=== PATIENT | male | born 1980 | race Caucasian/White ===

== ENCOUNTER 2023-11-17 09:23 | Day surgery (SDC) | payer OTHER, SELFPAY ==
[2023-11-17 09:40] VITALS: BP 135/82; PULSE 77; RESP 16; TEMP 36.1; O2SAT 99; BMI 24.9
--- NOTE | 2023-11-17 09:54 | PCM.PRE.AN2 ---
ASA Classification* ASA Classification ASA Classification: 2 Assessment & Plan Anesthesia* Anesthesia Assessment Anesthesia Assessment: Discussed sedation and/or anesthesia options, risks, benefits, and alternatives with patient/parents/legal guardian/POA. Questions invited. The patient/parents/legal guardian/POA seems to understand and agrees to proceed with anesthesia plan. Reviewed the physical assessment, medical history, allergy history and patient home medications list prior to surgery/procedure/anesthetic and documented any changes. Performed airway and anesthesia risk assessments. 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 When Was Last Pacemaker Check QUESTION #4 FULL TEXT: You/Your Family Experience fever (hyperthermia) with Anesthesia Last Oral Intake Last Oral intake: Last Oral Intake NPO since 00:00 11/17/23 09:40 Meds taken in AM with sips of No 11/17/23 09:40 water? 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 Female No 11/13/23 12:46 HX of Motion Sickness No 11/13/23 12:46 HX of N/V After Surgery No 11/13/23 12:46 Non-Smoker Yes 11/13/23 12:46 Duration of Surgery greater No 11/13/23 12:46 than 60 minutes Number of Risk Factors 1 11/13/23 12:46 PONV Score Low Risk 11/13/23 12:46 Height & Weight Height & Weight: Anesthesia: Height & Weight Height 6 ft 11/17/23 09:40 Weight: 83.3 kg 11/17/23 09:40 Body Mass Index (BMI) 24.9 11/17/23 09:40 Respiratory Assessment Respiratory Assessment - stationary boiler 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 Has anyone observed you stop No 11/13/23 12:46 breathing during sleep? STOP Results Negative 11/13/23 12:46 QUESTION #5 FULL TEXT : Do you snore loudly (louder than talking or can be heard through closed doors)? 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 Specify any problems Hx of Preganancy in last 3 N/A 11/13/23 12:46 Months Nurse Filling Out Transfusion VCHRISTIN 11/13/23 12:46 & Questions: Date: 11/13/23 11/13/23 12:46 Time: 12:47 11/13/23 12:46 Patient unable to answer at this time (ie. 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: /Reproductive Hx- stationary boiler fireman Hx Now Gestational Age (in weeks): EDC: Hx Hx Para Hx Section SAB PFSH Medical History Wears glasses Alcohol use Non-smoker Home Medications ?Medication ?Instructions ?Recorded ?Last Taken ?Type hydrocortisone 2.5 % topical cream 1 applic [place] BID-QID PRN 11/10/23 Unknown Rx with perineal applicator hemorrhoids 6 weeks #30 grams (Anusol-HC) ibuprofen 200 mg tablet 200 mg PO Q6H PRN pain 11/10/23 Unknown History Allergy/AdvReac Type Severity Reaction Status Date / Time No Known Allergies Allergy Verified 11/13/23 12:42 Social History Smoking Status: Never smoker alcohol intake: current substance use type: does not use Review of Systems (Anesthesia) ROS Narrative System reviewed and no additional complaints, except as documented.
[2023-11-17 09:55] VITALS: BP 135/82; PULSE 77; RESP 16; TEMP 36.1; O2SAT 99
--- NOTE | 2023-11-17 10:12 | HP.PCM_ITS ---
HPI - General General Date of Admission: 11/17/23 Date of Service: 11/17/23 Chief Complaint: Blood per rectum/colonoscopy HPI Narrative ANNABELLA SMITH, is a 43 M who presents for colonoscopy today. Patient was seen in the office recently and had some complaints of blood per rectum. I offered him a colonoscopy. We discussed the details of the planned procedure and he wished to proceed. Patient presents today to have this performed. [facility] Medical History Wears glasses Alcohol use Non-smoker Home Medications ?Medication ?Instructions ?Recorded ?Last Taken ?Type hydrocortisone 2.5 % topical cream 1 applic [place] BID-QID PRN 11/10/23 Unknown Rx with perineal applicator hemorrhoids 6 weeks #30 grams (Anusol-HC) ibuprofen 200 mg tablet 200 mg PO Q6H PRN pain 11/10/23 Unknown History Allergy/AdvReac Type Severity Reaction Status Date / Time No Known Allergies Allergy Verified 11/13/23 12:42 Social History Smoking Status: Never smoker alcohol intake: current substance use type: does not use ROS Constitutional Constitutional: Reports systems reviewed and no addt'l complaints, except as documented Eyes Eyes: Reports systems reviewed and no addt'l complaints, except as documented ENT HEENT: Reports systems reviewed and no addt'l complaints, except as documented Cardiovascular Cardiovascular: Reports systems reviewed and no addt'l complaints, except as documented Respiratory/Chest Respiratory/Chest: Reports systems reviewed and no addt'l complaints, except as documented Gastrointestinal Gastrointestinal: Reports systems reviewed and no addt'l complaints, except as documented Vital Signs Vital Signs Vital Signs: 11/17/23 09:40 11/17/23 09:40 11/17/23 09:55 Temperature 97.0 F L 97.0 F L Temperature Source Temporal Pulse Rate 77 77 Respiratory Rate 16 16 Respiratory Pattern Normal Blood Pressure 135/82 H 135/82 H Blood Pressure Mean 99 Blood Pressure Source Monitor Blood Pressure Position Sitting Blood Pressure Location Left Arm Pulse Ox 99 99 Oxygen Delivery Method Room Air Weight Weight: 183 lb 10.321 oz Body Mass Index (BMI) 24.9 Physical Exam Const alert, oriented x3 and no apparent distress General Appearance: cooperative and well kempt HEENT normocephalic Head and Scalp: normocephalic and atraumatic Eyes PERRL Chest palpation of chest normal Resp Effort and Inspection: symmetric chest movement GI soft to palpation and non-tender Assessment & Plan Assessment/Plan (1) Blood in stool: PLAN: Plan Colonoscopy today
--- NOTE | 2023-11-17 10:30 | COLBX_PTH ---
PATIENT: DALJIT SMITH LOC: EN U#:[id number] AGE/SX: 43/M ROOM: RE11/17/[address]: Dr. Daljit Recinos MD : 1980 BED: DIS: 11/17/2023 SPEC #: [id number] RECD: 11/17/23 16:48 STATUS: LAUREN BIA #: [id number] NAYELY: 11/17/23 10:[address]: Daljit Recinos DEPT: SURGICAL PATHOLOGY RECD BY: Brigette Scott ENTERED: 11/20/23 08:19 SP TYPE: COLON BX OTHR DR: No Primary Care Phys Tissues: Sigmoid colon biopsy Procedures: Surgery Specimen Level IV HEADER OPERATION: Colonoscopy with biopsy and polypectomy PRE-OP DIAGNOSIS: Blood in stool TISSUE SUBMITTED: Sigmoid colon biopsy and polyp MICROSCOPIC DIAGNOSIS Sigmoid colon polyp, biopsy: Fragments of hyperplastic polyp. AM. 11/21/2023 MICROSCOPIC DESCRIPTION Slides are reviewed. GROSS DESCRIPTION Received in fixative is one container labeled with the patient's name and designated Sigmoid colon biopsy and polyp. The specimen consists of multiple irregular fragments of light prince soft tissue that in aggregate measure 1.5 x 0.3 x 0.1 cm. The specimen is totally submitted in one cassette. 11/20/2023 TC:5 CPT:44188
--- NOTE | 2023-11-17 10:57 | PCM.POST.ANE ---
Anesthesia: Postop Eval I Current Vital Signs Temperature: 98.7 F Pulse Rate: 105 Blood Pressure: 119/84 Respiratory Rate: 20 Pulse Ox: 95 Oxygen Delivery Method: Room Air Assessment Airway patent: Yes Spontaneous unlabored respirations: Yes Mental status: Asleep nausea: No Vomiting: No Anesthesia Complication: No Fluid Hydration Crystalloid volume administer (ml): 10 Total IV fluid infused: 10 Progress Note Anesthesia document: Postop Eval 1 completed: Yes
[2023-11-17 10:58] VITALS: BP 119/84; PULSE 105; RESP 20; TEMP 37.1; O2SAT 95
--- NOTE | 2023-11-17 11:01 | OP.CCLET_ITS ---
11/17/2023 No Primary Care Physician Re : Colonoscopy procedure for Daljit Pablo Dear Care Physician This procedure was performed on Friday, November 17, 2023. My impressions and recommendations are as follows: Impressions : - Non-bleeding hemorrhoids. - One 6 mm polyp in the sigmoid colon, removed with a hot snare. Resected and retrieved. - Two 2 to 3 mm polyps in the sigmoid colon, removed with a cold biopsy forceps. Resected and retrieved. - The examination was otherwise normal on direct and retroflexion views. Recommendations : - Discharge patient to home (ambulatory). - High fiber diet. - Await pathology results. - Repeat colonoscopy in 5 years for surveillance based on pathology results. - Return to my office PRN. - Continue present medications. My findings are described in the full procedure note, which is enclosed. If I can be of further assistance, please feel free to contact me at . Sincerely, Daljit Recinos MD 11/17/2023 11:00:32 AM This report has been signed electronically.
--- NOTE | 2023-11-17 11:01 | OP.COLON_ITS ---
Patient Name: Daljit Pablo Procedure Date: 11/17/2023 10:09 AM Date of : 1980 Age: 43 Procedure: Colonoscopy Indications: Rectal bleeding Providers: Daljit Recinos MD Referring MD: Daljit Recinos MD Medicines: Propofol per Anesthesia Patient Profile: Refer to note in patient chart for documentation of history and physical. Last Colonoscopy: none. The patient's first colonoscopy is today. Complications: No immediate complications. Estimated blood loss: Minimal. Procedure: Pre-Anesthesia Assessment: - Prior to the procedure, a History and Physical was performed, and patient medications and allergies were reviewed. The patient's tolerance of previous anesthesia was also reviewed. The risks and benefits of the procedure and the sedation options and risks were discussed with the patient. All questions were answered, and informed consent was obtained. Prior Anticoagulants: The patient has taken no anticoagulant or antiplatelet agents. ASA Grade Assessment: II - A patient with mild systemic disease. After reviewing the risks and benefits, the patient was deemed in satisfactory condition to undergo the procedure. After I obtained informed consent, the scope was passed under direct vision. Throughout the procedure, the patient's blood pressure, pulse, and oxygen saturations were monitored continuously. The adult colonoscope was introduced through the anus and advanced to the cecum, identified by appendiceal orifice and ileocecal valve. The ileocecal valve, appendiceal orifice, and rectum were photographed. The entire colon was well visualized. The colonoscopy was performed without difficulty. The patient tolerated the procedure well. The quality of the bowel preparation was adequate. Moderate Sedation: See the other procedure note for documentation of moderate sedation with intraservice time. Scope In: 10:21:48 AM Scope Withdrawal Time 0 hours 17 minutes 23 seconds Scope Out: 10:49:32 AM Total Procedure Duration Time 0 hours 27 minutes 44 seconds Findings: The perianal and digital rectal examinations were normal. Non-bleeding hemorrhoids were found during retroflexion. The hemorrhoids were moderate. A 6 mm polyp was found in the sigmoid colon. The polyp was semi-sessile. The polyp was removed with a hot snare. Resection and retrieval were complete. Verification of patient identification for the specimen was done by the nurse using the patient's name, date and medical record number. Estimated blood loss was minimal. Two semi-sessile polyps were found in the sigmoid colon. The polyps were 2 to 3 mm in size. These polyps were removed with a cold biopsy forceps. Resection and retrieval were complete. Verification of patient identification for the specimen was done by the nurse using the patient's name, date and medical record number. Estimated blood loss was minimal. The exam was otherwise without abnormality on direct and retroflexion views. Impression: - Non-bleeding hemorrhoids. - One 6 mm polyp in the sigmoid colon, removed with a hot snare. Resected and retrieved. - Two 2 to 3 mm polyps in the sigmoid colon, removed with a cold biopsy forceps. Resected and retrieved. - The examination was otherwise normal on direct and retroflexion views. Recommendation: - Discharge patient to home (ambulatory). - High fiber diet. - Await pathology results. - Repeat colonoscopy in 5 years for surveillance based on pathology results. - Return to my office PRN. - Continue present medications. Procedure Code(s): --- Professional --- 84455, Colonoscopy, flexible; with removal of tumor(s), polyp(s), or other lesion(s) by snare technique 06047, 59, Colonoscopy, flexible; with biopsy, single or multiple Diagnosis Code(s): --- Professional --- K64.9, Unspecified hemorrhoids K62.5, Hemorrhage of anus and rectum D12.5, Benign neoplasm of sigmoid colon CPT copyright 2021 [employer]. All rights reserved. The codes documented in this report are preliminary and upon applications scientist review may be revised to meet current compliance requirements. Daljit Recinos MD 11/17/2023 11:00:32 AM This report has been signed electronically. Number of Addenda: 0 Note Initiated On: 11/17/2023 10:09 AM
== END 2023-11-17 11:43 | disposition home or self-care (01) ==
LOC: EN 09:24 → AC 09:26
PROVIDERS: Referring Provider Surgery; Visit Provider Surgery
PROC: 0DJD8ZZ Inspection of Lower Intestinal Tract, Via Natural or Artificial Opening Endoscopic (ICD-10-PCS; CPT 45378; principal; 2023-11-17 10:25)
DX: K63.5 Polyp of colon (principal); K64.9 Unspecified hemorrhoids
CPT/HCPCS: 45385; 45380; 88305; J2405